=== PATIENT | female | born 1955 | race Caucasian/White ===

== ENCOUNTER 2016-10-17 09:50 | Emergency (ER) | payer BC ==
--- NOTE | 2016-10-17 10:06 | PDOC ---
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 Will prescribe clindamycin to cover community-acquired eri as well as community acquired MRSA I agree with plan as outlined by the Advanced Practice Provider 10/17/16 10:20 *DC/Admit/Observation/Transfer Diagnosis at time of Disposition: Insect bite, Cellulitis of right leg - Discharge Dispostion Disposition: HOME Condition at time of disposition: Good - Prescriptions Prescriptions: Clindamycin [Cleocin -] 300 mg PO Q6HPO #28 capsule - Referrals Referrals: Cyn Reed [Primary Care Provider] - - Patient Instructions Printed Discharge Instructions: DI for Cellulitis -- Adult Additional Instructions: You have cellulitis of your right leg. The area was outlined today. Watch the area to see if there is worsening of the area. You should see improvement within the next 24 hours. You were prescribed Clindamycin. Take the medication as directed and finish the whole amount of medication even if you feel better. You may also take Benadryl as needed for itching. Start taking Zyrtec today as well for antihistamine coverage. Take one Zyrtec daily. Apply ice to the area as well. You may take Tylenol or Motrin as needed for pain. Follow up with your primary care doctor within the week and have them review the documentation from todays ED visit. . Return to the ED if you have worsening fevers, chills, increased pain, swelling of the area, shortness of breath, difficulty breathing or any changes in your symptoms. - Post Discharge Activity Work/School Note: Back to Work
[2016-10-17 10:07] VITALS: BP 169/90; PULSE 80; TEMP 98.5; BMI 34.7
--- NOTE | 2016-10-17 10:30 | PDOC ---
History of Present Illness - General Chief Complaint: Redness To Affected Area Stated Complaint: INSECT BITES OF BOTH FEET Time Seen by Provider: 10/17/16 10:02 - History of Present Illness Initial Comments: 10/17/16 13:40 Patient is a 61-year-old female presents to emergency department complaining of swelling to her right lower leg. Patient states she hit by a bug yesterday and the area started to swell, and now she is worried about possible infection. Patient states that this happened to her last year. Admits to itching, and swelling to the area. Admits to subjective fevers. She also states she has multiple scattered bug bites on both of her feet Denies shortness of breath, throat swelling, difficulty breathing, hives, chest pain, palpitations, nausea and vomiting. Past History - Past Medical History Allergies/Adverse Reactions: Allergies Allergy/AdvReac Type Severity Reaction Status Date / Time No Known Allergies Allergy Verified 10/17/16 10:01 Home Medications: Ambulatory Orders Hydrochlorothiazide [Hctz -] 25 mg PO DAILY 10/01/15 Lisinopril 10 mg PO DAILY 10/01/15 Metoprolol Succinate [Toprol Xl] 100 mg PO DAILY 10/01/15 Clindamycin [Cleocin -] 300 mg PO Q6HPO #28 capsule 10/17/16 HTN: Yes - Psycho/Social/Smoking Cessation Hx Anxiety: No Suicidal Ideation: No Smoking History: Never smoked Have you smoked in the past 12 months: No Hx Alcohol Use: Yes (RARE) Drug/Substance Use Hx: No Substance Use Type: None *Physical Exam - Vital Signs Last Vital Signs Temp Pulse Resp BP Pulse Ox 98.5 F 80 15 169/90 99 10/17/16 10:00 10/17/16 10:00 10/17/16 10:00 10/17/16 10:10/17/16 10:00 - Physical Exam General Appearance: Yes: Nourished, Appropriately Dressed. No: Apparent Distress Vascular Pulses: Dorsalis-Pedis (R): 2+, Doralis-Pedis (L): 2+ Extremity: positive: Normal Capillary Refill, Normal Inspection, Normal Range of Motion Integumentary: positive: Dry, Warm, Erythema (To R lower leg. 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 Patient appears to have had a insect bite that has turned into a brewing cellulitis area and the site is dry red and inflamed. 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 The area was marked with a pen to monitor the cellulits. Patient was also instructed to start Zyrtec 10 mg daily for her insect bites to help with the itch. Patient last took Benadryl this morning. She is to follow up with her PCP within the week. Pt. was given strict return precautions including new fevers or chills, or expansion of the rash. Will discharge patient home at this time. Patient understands all discharge instructions and all questions were answered at this time. *DC/Admit/Observation/Transfer Diagnosis at time of Disposition: Cellulitis of right leg Insect bite Qualifiers: Encounter type: initial encounter Qualified Code(s): W57.XXXA - Bitten or stung by nonvenomous insect and other nonvenomous arthropods, initial encounter - Discharge Dispostion Disposition: HOME Condition at time of disposition: Good Admit: No - Prescriptions Prescriptions: Clindamycin [Cleocin -] 300 mg PO Q6HPO #28 capsule - Referrals Referrals: Cyn Reed [Primary Care Provider] - - Patient Instructions Printed Discharge Instructions: DI for Cellulitis -- Adult Additional Instructions: You have cellulitis of your right leg. The area was outlined today. Watch the area to see if there is worsening of the area. You should see improvement within the next 24 hours. You were prescribed Clindamycin. Take the medication as directed and finish the whole amount of medication even if you feel better. You may also take Benadryl as needed for itching. Start taking Zyrtec today as well for antihistamine coverage. Take one Zyrtec daily. Apply ice to the area as well. You may take Tylenol or Motrin as needed for pain. Follow up with your primary care doctor within the week and have them review the documentation from todays ED visit. . Return to the ED if you have worsening fevers, chills, increased pain, swelling of the area, shortness of breath, difficulty breathing or any changes in your symptoms. - Post Discharge Activity Work/School Note: Back to Work
== END 2016-10-17 10:45 | disposition home or self-care (01) ==
LOC: SUPCPDRO 09:50 → FER 09:50
DX: L03.115 Cellulitis of right lower limb (principal); W57.XXXA Bitten or stung by nonvenomous insect and other nonvenomous arthropods, initial encounter; Y93.89 Activity, other specified; Y92.89 Other specified places as the place of occurrence of the external cause; I10 Essential (primary) hypertension
CPT/HCPCS: 99281-25